=== PATIENT | female | born 1995 | race Two or more races ===

== ENCOUNTER 2019-04-18 13:27 | Emergency (ER) | payer MEDICAID ==
[~2019-04-18] VITALS: Ht 167.6 cm; Wt 111.1 kg
[2019-04-18 13:36] VITALS: BP 123/85
[2019-04-18] MEDS ORDERED: IBUPROFEN 800 MG TAB PO ONE (15:15)
[2019-04-18] MEDS ORDERED: cefTRIAXone SOD 1,000 MG VL IM ONE (15:15)
== END 2019-04-18 16:21 | disposition home or self-care (01) ==
LOC: ER 13:41
DX: J03.90 Acute tonsillitis, unspecified (principal); N39.0 Urinary tract infection, site not specified
CPT/HCPCS: 81002; 96372; 99283; J0696

== ENCOUNTER 2019-09-19 20:01 | Emergency (ER) | payer MEDICAID ==
[~2019-09-19] VITALS: Ht 167.6 cm; Wt 108.9 kg
[2019-09-19 21:41] LABS: Basophils # (auto) 0.1 uL; Basophils % (auto) 0.6 % (0.0-2.0); Eosinophils # (auto) 0.2 uL; Eosinophils % (auto) 2.7 % (0.0-7.0); Hematocrit 39.1 % (36.0-46.0); Hemoglobin 13.4 g/dL (12.2-16.2); Lymphocytes # (auto) 3.2 uL; Lymphocytes % (auto) 36.9 % (10.0-50.0); Mean Corpuscular Hemoglobin 27.9 pg (28.0-32.0); Mean Corpuscular Hgb Conc. 34.2 g/dL (32.0-36.0); Mean Corpuscular Volume 81.6 fL (80.0-100.0); Monocytes # (auto) 0.6 uL; Monocytes % (auto) 7.3 % (0.0-12.0); Neutrophils # (auto) 4.6 uL; Neutrophils % (auto) 52.5 % (37.0-80.0); Platelet Count (auto) 410 10^3/uL (140-450); Red Blood Cells 4.79 10^6/uL (4.0-5.20); Red Cell Distribution Width 13.4 % (11.8-14.3); White Blood Cell 8.7 10^3/uL (4.4-10.8)
[2019-09-19 21:45] LABS: Urine Bacteria MANY /hpf (None Seen); Urine Blood Negative /uL (Negative); Urine Hyaline Cast FEW /lpf (0 - 2); Urine Mucus FEW (None Seen); Urine Specific Gravity 1.027 (1.001-1.035); Urine WBC 10 /hpf (0 - 5)
[2019-09-19 22:02] LABS: BUN/Creatinine Ratio 17.7; Calcium 9.2 mg/dL (8.5-10.1); Potassium 3.7 mmol/L (3.5-5.1)
[2019-09-19 22:05] LABS: Bilirubin, Total 0.2 mg/dL (0.2-1.0); Total Protein 8.7 g/dL (6.4-8.2)
[2019-09-20 00:26] VITALS: BP 115/57
[2019-09-20] MEDS ORDERED: PHENAZOPYRIDINE HCL 100 MG TAB PO ONE (00:30)
[2019-09-20] MEDS ORDERED: cefTRIAXone SOD 1,000 MG VL IM ONE (00:30)
[2019-09-20] MEDS: LACTULOSE 20Gm/30ML SOLN PO ONE ×2 (00:30→01:38)
[2019-09-20] MEDS ORDERED: ACETAMINOPHEN/CODEINE#3 (300/30mg) TAB PO ONE (02:00)
[2019-09-20] MEDS ORDERED: BACLOFEN 10 MG TAB PO ONE (02:30)
== END 2019-09-20 02:44 | disposition home or self-care (01) ==
LOC: ER 20:01
DX: N39.0 Urinary tract infection, site not specified (principal); K59.00 Constipation, unspecified; M54.5 Low back pain; F12.10 Cannabis abuse, uncomplicated
CPT/HCPCS: 36415; 74176; 80053; 81001; 81025; 85025; 96372; 99284; J0696

== ENCOUNTER 2020-03-30 20:27 | Emergency (ER) | payer MEDICAID ==
[~2020-03-30] VITALS: Ht 167.6 cm; Wt 106.6 kg
[2020-03-30 21:06] VITALS: BP 118/84
[2020-03-30 21:07] LABS: Urine Bacteria NONE SEEN /hpf (None Seen); Urine Blood 2+ /uL (Negative); Urine Mucus FEW (None Seen); Urine Specific Gravity 1.024 (1.001-1.035); Urine WBC 174 /hpf (0 - 5)
[2020-03-30] MEDS ORDERED: cefTRIAXone SOD 1,000 MG VL IM ONE (21:45)
== END 2020-03-30 22:30 | disposition home or self-care (01) ==
LOC: ER 20:28
DX: N39.0 Urinary tract infection, site not specified (principal); K59.00 Constipation, unspecified; M54.5 Low back pain
CPT/HCPCS: 81001; 96372; 99283; J0696